=== PATIENT | female | born 1995 | race American Indian/Alaskan Native ===

== ENCOUNTER 2017-05-23 17:40 | Outpatient (CLI) | payer SELFPAY ==
[2017-05-23] MEDS ORDERED: LACTATED RINGERS 500 ML IV ONE (18:28)
[2017-05-23 18:51] LABS: Bilirubin,Urine NEG (Negative); Blood,Urine NEG (Negative); Ketones,Urine NEG (Negative); Leukocyte Esterase,Urine NEG (Negative); Nitrite,Urine NEG (Negative); Protein,Urine <15 mg/dL mg/dL (Negative); Urobilinogen,Urine < 2.0 mg/dL (<2.0)
[2017-05-23 19:16] VITALS: BP 117/69
[2017-05-23] MEDS ORDERED: BRETHINE SUB-Q ONE (19:29)
--- NOTE | 2017-05-24 08:35 | Ultrasound Report ---
OB ULTRASOUND History: well being Technique: Transabdominal ultrasound with Doppler interrogation. Gestation: Single Position: Cephalic Amniotic Fluid: Normal GRACIELA = 13.4 cm Placenta: Posterior Placental Grade: 1 Heart Rate: 165 BPM Cervical length: 2.9 cm (Normal > 3 cm) NEUROANATOMY VISUALIZED: Choroid Plexus Cisterna Magnum Cerebellum Lateral Ventricle ANATOMY VISUALIZED: Stomach Kidneys Bladder Diaphragm 4 Chamber Heart Heart 3 Vessel Cord Abd. Cord Insert SPINE VISUALIZED: Longitudinal The following are not demonstrated due to maternal body habitus or lie: Transverse views of the spine BPD: 6.4 cm = 25 w 6 d HC: 23.6 cm = 25 w 5 d AC: 19.9 cm = 24 w 4 d FL: 4.7 cm = 25 w 4 d HC/AC Ratio: 1.18 Cephalic Index: 81.8 Estimated Weight: 775 grams LMP: 12/02/16 Clinical age = 24 w 4 d EDC: 09/08/17 US Gest. Age = 25 w 3 d EDC: 09/02/17
== END 2017-05-23 21:25 | disposition home or self-care (01) ==
LOC: TRG 17:40
PROVIDERS: ATTEND Obstetrics & Gynecology
DX: O47.02 False labor before 37 completed weeks of gestation, second trimester (principal); Z3A.24 24 weeks gestation of pregnancy
CPT/HCPCS: 36415; 76805; 81001; 82731; 96360; 96372; J3105; J7120

== ENCOUNTER 2017-06-05 18:51 | Outpatient (CLI) | payer MEDICAID ==
[2017-06-05 19:11] VITALS: BP 129/69
[2017-06-05] MEDS ORDERED: LACTATED RINGERS 1,000 ML ONE (19:29)
[2017-06-05] MEDS ORDERED: LACTATED RINGERS 1,000 ML IV SCH (21:00)
[2017-06-05 21:15] LABS: Bacteria,Urine 1+ /HPF (Negative); Bilirubin,Urine NEG (Negative); Blood,Urine NEG (Negative); Ketones,Urine NEG (Negative); Leukocyte Esterase,Urine NEG (Negative); Mucus,Urine FEW /HPF; Nitrite,Urine NEG (Negative); Protein,Urine <15 mg/dL mg/dL (Negative); Urobilinogen,Urine < 2.0 mg/dL (<2.0); WBC,Urine < 1.0 /HPF (0.0-6.0)
== END 2017-06-05 22:31 | disposition home or self-care (01) ==
LOC: TRG 18:51
PROVIDERS: ATTEND Obstetrics & Gynecology
DX: O47.02 False labor before 37 completed weeks of gestation, second trimester (principal); Z3A.26 26 weeks gestation of pregnancy
CPT/HCPCS: 36415; 81001; 82731; 96360; J7120

== ENCOUNTER 2017-12-15 09:18 | Emergency (ER) | payer MEDICARE ==
[2017-12-15 09:35] VITALS: BP 119/78
[2017-12-15 10:39] LABS: Bilirubin,Urine NEG (Negative); Blood,Urine LG (Negative); Color,Urine Red (Yellow); Urobilinogen,Urine < 2.0 mg/dL (<2.0)
[2017-12-15 10:42] LABS: RBC,Urine > 182.0 /HPF (0.0-6.0)
[2017-12-15 10:43] LABS: HCG Qualitative,Urine Negative (Negative)
== END 2017-12-15 12:50 | disposition left against medical advice (07) ==
LOC: ED 09:18
DX: N93.9 Abnormal uterine and vaginal bleeding, unspecified (principal); Z53.21 Procedure and treatment not carried out due to patient leaving prior to being seen by health care provider
CPT/HCPCS: 81001; 81025